=== PATIENT | male | born 1990 | race Caucasian/White ===

== ENCOUNTER 2016-12-26 09:55 | Emergency (ER) | payer BC ==
[2016-12-26] MEDS: TETRACAINE 0.5% - 2 ML EYE DROPS EACH EYE ONE (09:55)
[2016-12-26] MEDS: FLUORESCEIN 1 MG EYE STRIP RIGHT EYE ONE (09:55)
[2016-12-26] MEDS ORDERED: FLUORESCEIN 1 MG EYE STRIP ONE (10:03)
[2016-12-26] MEDS ORDERED: TETRACAINE 0.5% - 2 ML EYE DROPS ONE (10:03)
[2016-12-26] MEDS ORDERED: TOBRAMYCIN 0.3% - 5 ML EYE DROPS ONE (10:15)
[2016-12-26 10:18] VITALS: RESP 16; TEMP 97.2
--- NOTE | 2016-12-26 10:23 | PDOC ---
Eye Complaint HPI - General Chief Complaint: Eye Problem / Injury Stated Complaint: foreign body right eye Date Seen by Provider: 12/26/16 Time Seen by Provider: 10:05 Source: POSITIVE: Patient, Spouse Exam Limitations: POSITIVE: No limitations Nurse's Notes Reviewed & Considered: Yes - History of Present Illness Initial Comments: Patient was grinding steel on his pickup yesterday and got material in his eye at approximately 1600 hrs. His eyes have continued to water overnight now with increased pain, photosensitivity, erythema of the conjunctiva, and watery eyes. He does have some blurry vision present. He denies any other symptoms. Have you received a tetanus shot in the past 10 years?: Unknown Location: Right Eye Timing: REPORTS: Abrupt Duration: <24 hours Severity: Moderate Quality: REPORTS: "Pain" Associated Symptoms: REPORTS: Burning, Sensitivity to Light, Redness, Foreign Body Sensation, Decreased Vision, Blurred Vision Context: REPORTS: Foreign Body Location at Time of Onset: REPORTS: Home Modifying Factors: REPORTS: Movement, Positioning Similar Symptoms Previously: No Recent Care Received: REPORTS: Denies Any Prior Injuries Related to Current Complaint?: No - Patient Home Medications Home Medications: Home Medications NK [No Home Medications Reported] 09/02/13 - Patient Allergies Allergies/Adverse Reactions: Allergies Allergy/AdvReac Type Severity Reaction Status Date / Time No Known Allergies Allergy Verified 12/26/16 10:04 Past Medical History - heen HEENT History: Denies History Cardiovascular History: Denies History Respiratory History: Denies History Gastrointestinal History: Denies History Genitourinary History: Denies History Endocrine History: Denies History Musculoskeletal History: Denies History Neurological History: Denies History Blood Disorders: Denies History Psychiatric History: Denies History Cancer History: Denies History In Past Year Been Physically Harmed or Verbally Threatened: No History of MDRO: No Tobacco Use: Never Smoker Alcohol Use: None Substance Use Type: None Previous Surgical History: No ROS - Limitations ROS Limitations: No Limitations Constitution: REPORTS: Denies Symptoms Cardiovascular: REPORTS: Denies Cardiac Symptoms Respiratory: REPORTS: Denies Resp Symptoms Neurological: REPORTS: Denies Neuro Symptoms Gastrointestinal: REPORTS: Denies GI Symptoms Endocrine: REPORTS: Denies Symptoms Musculoskeletal: REPORTS: Denies MS Symptoms Genitourinary: REPORTS: Denies Symptoms Eyes: REPORTS: Eye Pain (Right eye), Red Eyes, Eye Drainage, Vision Changes ENT: REPORTS: Denies Symptoms Skin: REPORTS: Denies Skin Symptoms Lympathic: REPORTS: Denies Lympathic Symptoms Immunologic: POSITIVE: Denies Symptoms Psychiatric: POSITIVE: Denies Psych Symptoms Eye Complaint Physical Exam - General Appearance General Appearance: POSITIVE: Alert, Cooperative, Mild Distress - Visual Acuity / Pupil Size Visual Acuity: 20/20: Right, 20/15: Bilateral Pupil Size: 5 mm: Bilateral - HEENT Head / Face: POSITIVE: Atraumatic, Normal Inspection, No Facial Swelling Eyes: POSITIVE: PERRL, EOM's Intact, Eyelids Uninjured, No Nystagmus, No Globe Trauma, Foreign Material, Erythema, Photophobia Ears: POSITIVE: Ears Normal Inspection, Auricle Normal Nose: POSITIVE: Inspection Normal, No Apparent Trauma, Nares Normal, No CSF Leak Oropharynx: POSITIVE: External Inspection Nml, Airway Intact, Voice Normal, Moist Mucous Membranes - Skin Skin: POSITIVE: Normal Color, No Skin Rash Procedures - Eye Procedure Time of Procedure: 10:25 Procedure Done By:: Cocaine and fluorescein were applied to the right eye. Slit lamp examination shows foreign body at 5 o'clock position over the iris. This was easily removed using a needle. 20 mL of normal saline were irrigated into the eye reexamination shows no foreign body present. There is a rust ring present where the foreign object was removed. Procedure was performed by Dr. Michael West Tetracaine Drops Applied: Yes Eye FB Removal: Removal w/ Needle Eye Irrigated w/ Saline (mL): 20 Eye Complaint Progress - Patient's Progress Pain Medication Addressed: POSITIVE: Yes Status: POSITIVE: Improved MDM / ED Course: After obtaining informed verbal consent patient had tetracaine enforcing applied to his right eye slit lamp examination wasn't performed. There was a foreign object at the 5 o'clock position over the iris. This was removed with a 18-gauge needle without difficulty. I was then irrigated with 20 mL of normal saline. He receives a prescription for TobraDex optic Lion ointment be applied twice a day. He is to follow-up tomorrow with an paste up worker or principal web developer. Patient Care Time - Estimated PCT Patient Care Time (In Minutes): 20 Vital Signs - VS Reviewed Vital Signs Reviewed: Yes Discharge Clinical Impression: Retained foreign body in eye Discharge Disposition: Discharged to Home Condition: Good Patient Instructions Given at Discharge: Eye Foreign Body (ED)
== END 2016-12-26 10:40 | disposition home or self-care (01) ==
LOC: ER 09:55
DX: T15.91XA Foreign body on external eye, part unspecified, right eye, initial encounter (principal); W31.89XA Contact with other specified machinery, initial encounter
CPT/HCPCS: 65220; 99282